=== PATIENT | male | born 1975 ===

== ENCOUNTER 2019-04-05 11:18 | Emergency (ER) | payer OTHER ==
[~2019-04-05] VITALS: Ht 177.8 cm; Wt 113.4 kg
[2019-04-05] MEDS ORDERED: TOPROL XL25 MG (12:06)
[2019-04-05] MEDS ORDERED: HYZAAR 50-12.51 EACH (12:06)
== END 2019-04-06 00:13 | disposition home or self-care (01) ==
LOC: ER 11:18
DX: K57.92 Diverticulitis of intestine, part unspecified, without perforation or abscess without bleeding (principal)

== ENCOUNTER 2019-12-13 10:30 | Day surgery (SDC) | payer OTHER ==
[~2019-12-13 10:30] MED LIST: HYZAAR 50-12.51 EACH; TOPROL XL25 MG
== END 2019-12-13 14:55 | disposition home or self-care (01) ==
LOC: AMB-ENDOS 10:30
PROVIDERS: ATTEND Surgery
DX: D12.3 Benign neoplasm of transverse colon (principal)

== ENCOUNTER 2019-12-13 10:39 | Outpatient (CLI) | payer OTHER | END 2019-12-13 10:44 | disposition home or self-care (01) | LOC: LAB 10:39 | PROVIDERS: ATTEND Colon & Rectal Surgery | DX: Z20.828 Contact with and (suspected) exposure to other viral communicable diseases (principal); Z03.818 Encounter for observation for suspected exposure to other biological agents ruled out ==